=== PATIENT | male | born 1940 | race Caucasian/White ===

== ENCOUNTER 2023-08-06 23:49 | Inpatient (IN) | payer MEDICARE, BC ==
[~2023-08-06] VITALS: Ht 170.2 cm; Wt 74.4 kg
[~2023-08-06 23:49] MED LIST: ASPI1TAB2 PO; ATOR40TA PO; CLON0.5T4 PO; ESCI10TA PO; LATA2.5D15 EACHEYE; ZOLP5TAB2 PO
[2023-08-07] VITALS: BP 146/92; TEMP 98.4; O2SAT 96
[2023-08-07] MEDS ORDERED: MAG HYDROX/AL HYDROX/SIMETH 30 ML LIQUID UDC PO PRN (00:15)
[2023-08-07] MEDS: BLOOD SUGAR DIAGNOSTIC 1 EACH STRIP VI ONE (00:15)
[2023-08-07 08:00] VITALS: BP 140/72; TEMP 98.2; O2SAT 98
[2023-08-07] MEDS: LORAZEPAM 0.5 MG TABLET PO PRN ×2 (09:33→21:17)
[2023-08-07] MEDS ORDERED: ASPIRIN/ACETAMINOPHEN/CAFFEINE TABLET PO PRN (10:45)
[2023-08-07] MEDS: ESCITALOPRAM OXALATE 10 MG TABLET PO SCH (13:00)
[2023-08-07 16:00] VITALS: BP 137/72; TEMP 98.1; O2SAT 99
[2023-08-07] MEDS: CLONAZEPAM 0.5 MG TABLET PO SCH (16:08)
[2023-08-07] MEDS ORDERED: AMLO-212 PO (17:42)
[2023-08-07] MEDS ORDERED: ATORVASTATIN 40 MG TABLET PO SCH (18:00)
[2023-08-07] MEDS: AMLODIPINE 5 MG TABLET PO SCH (18:29)
[2023-08-07 20:09] VITALS: BP 134/70; TEMP 98.1; O2SAT 98
[2023-08-07] MEDS: TRAZODONE 50 MG TABLET PO SCH (20:37)
[2023-08-07] MEDS: LATANOPROST OPHT DROP 2.5 ML BOTTLE EACHEYE SCH (20:38)
[2023-08-07] MEDS ORDERED: TRAZODONE 50 MG TABLET PO SCH (21:00)
[2023-08-07] MEDS: MAGNESIUM HYDROXIDE 30 ML LIQUID UDC PO PRN (23:51)
[2023-08-08 07:30] VITALS: BP 141/72; TEMP 98.4; O2SAT 98
[2023-08-08] MEDS: ACETAMINOPHEN 325 MG TABLET PO PRN (13:04)
[2023-08-08 15:03] VITALS: BP 135/70; TEMP 98; O2SAT 100
[2023-08-08] MEDS: FLEET ENEMA 133 ML BOTTLE RC ONE ×3 (15:15→21:31)
[2023-08-08] MEDS ORDERED: ASPIRIN 325 MG TABLET PO SCH (17:45)
[2023-08-08 20:13] VITALS: BP 141/73; TEMP 98.1; O2SAT 96
[2023-08-08] MEDS: TEMAZEPAM 7.5 MG CAPSULE PO PRN (21:45)
[2023-08-09 07:30] VITALS: BP 136/65; TEMP 98.2; O2SAT 96
[2023-08-09] MEDS: MIRALAX 17 GM POWD.PACK PO SCH (09:00)
[2023-08-09] MEDS: ASPIRIN 81 MG TAB.CHEW PO SCH (09:10)
[2023-08-09 11:07] LABS: THYROID STIMULATING HORMONE 2.188 mIU/mL (0.358-3.740)
[2023-08-09 16:37] VITALS: BP 112/60; TEMP 98; O2SAT 98
[2023-08-09 20:06] VITALS: BP 109/58; TEMP 98.2; O2SAT 96
[2023-08-09] MEDS: TRAMADOL HCL 50 MG TABLET PO PRN (20:40)
[2023-08-10 07:51] VITALS: BP 111/53; TEMP 98.7; O2SAT 99
[2023-08-10 08:06] LABS: FOLATE (FOLIC ACID), SERUM 13.8 ng/mL (>3.0)
[2023-08-10 16:19] VITALS: BP 140/65; TEMP 98.2; O2SAT 98
[2023-08-10 20:06] VITALS: BP 122/63; TEMP 98; O2SAT 99
[2023-08-11 08:31] VITALS: BP 118/65; TEMP 98.8; O2SAT 98
[2023-08-11 16:23] VITALS: BP 135/77; TEMP 98.4; O2SAT 98
[2023-08-11 19:46] VITALS: BP 134/71; TEMP 98.1; O2SAT 96
[2023-08-12 07:43] VITALS: BP 110/63; TEMP 99.5; O2SAT 99
[2023-08-12 10:19] VITALS: TEMP 98.8
[2023-08-12 15:30] VITALS: BP 118/64; TEMP 98.1; O2SAT 98
[2023-08-12 19:47] VITALS: BP 138/66; TEMP 98.1; O2SAT 99
[2023-08-13 07:58] VITALS: BP 124/72; TEMP 98; O2SAT 98
[2023-08-13] MEDS: FLEET ENEMA 133 ML BOTTLE RC PRN (09:50)
[2023-08-13 15:14] VITALS: BP 108/56; TEMP 98; O2SAT 98
[2023-08-13 19:44] VITALS: BP 136/68; TEMP 98.1; O2SAT 99
[2023-08-14 07:36] VITALS: BP 92/53; TEMP 98.2; O2SAT 100
[2023-08-14 08:34] VITALS: BP 92/53
[2023-08-14] MEDS ORDERED: AMLO-212 PO (10:50)
[2023-08-14] MEDS ORDERED: LATA2.5D15 EACHEYE (10:50)
== END 2023-08-14 12:30 | disposition home health service (06) | DRG 885 ==
LOC: GPS 23:49
PROVIDERS: ADMIT Psychiatry & Neurology Psychosomatic Medicine; ATTEND Nurse Practitioner Acute Care
DX: F33.2 Major depressive disorder, recurrent severe without psychotic features (principal); R45.851 Suicidal ideations; F41.0 Panic disorder [episodic paroxysmal anxiety]; E78.5 Hyperlipidemia, unspecified; I10 Essential (primary) hypertension; G47.00 Insomnia, unspecified; K59.00 Constipation, unspecified; Z60.8 Other problems related to social environment; H40.9 Unspecified glaucoma; M15.9 Polyosteoarthritis, unspecified; G31.84 Mild cognitive impairment of uncertain or unknown etiology
CPT/HCPCS: 36415; 70450; 82746; 83921; 84443